=== PATIENT | female | born 1995 | race Caucasian/White ===

== ENCOUNTER → 2017-08-22 | Outpatient (CLI) | payer OTHER ==
[~2017-08-22] MED LIST: BCPILLS PO
--- NOTE | 2017-08-22 10:20 | DIAGNOSTIC IMAGING REPORT ---
GALLBLADDER-ABD LIMITED CLINICAL HISTORY: 22 years-old Female presenting with ABDOMINAL PAIN. TECHNIQUE: Real-time grayscale and limited color Doppler ultrasound imaging of the abdomen limited to the right upper quadrant was performed. COMPARISON: None. FINDINGS: Pancreas: Visualized portions of the pancreatic head and body normal. Liver: Normal echogenicity and echotexture. The liver measures 16.8 cm in maximal sagittal dimension. No sonographic evidence of hepatic mass. Main portal vein patent with normal directional flow. Biliary: No intrahepatic biliary ductal dilatation. Common bile duct measures up to 2 mm in diameter. Gallbladder: No evidence of gallstones, gallbladder wall thickening, gallbladder distention, or pericholecystic fluid or inflammatory change. Right kidney: Normal in appearance and size, measuring 13.1 cm. No hydronephrosis. Ascites: None. IMPRESSION: Normal right upper quadrant ultrasound. Electronically signed by: Gualberto Michelle M.D. 08/22/2017 10:18 AM Dictated Date/Time: 08/22/2017 10:17 AM
== END | disposition home or self-care (01) ==
LOC: C.ULTR 09:45
PROVIDERS: ATTEND Registered Nurse
DX: R10.84 Generalized abdominal pain (principal)